=== PATIENT | female | born 1960 | race Hispanic/Latino ===

== ENCOUNTER → 2023-12-21 | Outpatient (CLI) | payer MEDICARE | END | disposition home or self-care (01) | LOC: RAH 10:47 | PROVIDERS: ATTEND Family Medicine | DX: M16.11 Unilateral primary osteoarthritis, right hip (principal); M25.551 Pain in right hip; W01.0XXA Fall on same level from slipping, tripping and stumbling without subsequent striking against object, initial encounter; X58.XXXA Exposure to other specified factors, initial encounter; Y93.89 Activity, other specified; Y92.89 Other specified places as the place of occurrence of the external cause; Y99.8 Other external cause status | CPT/HCPCS: 73502 ==

== ENCOUNTER → 2024-01-03 | Outpatient (CLI) | payer MEDICARE | END | disposition home or self-care (01) | LOC: RAH 15:02 | PROVIDERS: ATTEND Family Medicine | DX: Z12.31 Encounter for screening mammogram for malignant neoplasm of breast (principal); R92.323 Mammographic fibroglandular density, bilateral breasts; Z98.82 Breast implant status | CPT/HCPCS: 77067 ==

== ENCOUNTER → 2024-01-16 | Outpatient (CLI) | payer MEDICARE | END | disposition home or self-care (01) | LOC: RAH 13:50 | PROVIDERS: ATTEND Family Medicine | DX: M85.89 Other specified disorders of bone density and structure, multiple sites (principal); M16.9 Osteoarthritis of hip, unspecified; W01.0XXA Fall on same level from slipping, tripping and stumbling without subsequent striking against object, initial encounter | CPT/HCPCS: 77080 ==

== ENCOUNTER → 2024-09-06 | Outpatient (CLI) | payer OTHER, MEDICARE | END | disposition home or self-care (01) | LOC: RAH 15:40 | PROVIDERS: ATTEND Family Medicine | DX: S33.140A Subluxation of L4/L5 lumbar vertebra, initial encounter (principal); M47.817 Spondylosis without myelopathy or radiculopathy, lumbosacral region; X58.XXXA Exposure to other specified factors, initial encounter; Y93.89 Activity, other specified; Y92.89 Other specified places as the place of occurrence of the external cause; Y99.8 Other external cause status | CPT/HCPCS: 72100 ==

== ENCOUNTER → 2024-11-26 | Outpatient (CLI) | payer OTHER, MEDICARE ==
--- NOTE | 2024-11-26 09:48 | HMCIMG ---
US ABDOMINAL COMPLETE HISTORY: Abdominal pain COMPARISON: None TECHNIQUE: Multiple transverse and longitudinal ultrasound images of the abdomen were obtained. FINDINGS: Abdominal aorta and inferior vena cava are unremarkable. The visualized portion of the pancreas is within normal limits. Liver measures 14 cm. The study is limited due to overlying bowel gas. No gallstone is seen. Common duct measures 3 mm. No evidence of gallbladder wall thickening is seen. Both kidneys are seen. Right kidney measures 10 x 4.4 x 4.3 cm. Left kidney measures 7.3 x 5.4 x 4.8 cm. No hydronephrosis is seen of the both kidneys. The spleen is grossly unremarkable. IMPRESSION: 1. No gallstone or ductal dilatation is seen. Limited study due to overlying bowel gas. 2. No hydronephrosis is seen.
== END | disposition home or self-care (01) ==
LOC: RAH 08:56
PROVIDERS: ATTEND Family Medicine
DX: R10.84 Generalized abdominal pain (principal)
CPT/HCPCS: 76700

== ENCOUNTER → 2025-01-21 | Outpatient (CLI) | payer OTHER, MEDICARE ==
--- NOTE | 2025-01-21 14:09 | HMCIMG ---
MR PELVIS WO CON HISTORY: Pain COMPARISON: None TECHNIQUE: MRI of the pelvis was performed utilizing multiple pulse sequences in axial, coronal and sagittal planes. Patient was not given contrast through intravenous route. FINDINGS: No abnormal signal intensity is seen of the visualized bony structures. There are bilateral hip joints space narrowing. No MR evidence of avascular necrosis, stress fracture or dislocation is seen. No appreciable amount of joint effusion is seen. IMPRESSION: 1. Findings as described above. DJD.
--- NOTE | 2025-01-21 14:13 | HMCIMG ---
MR SPINAL CANAL, LUMBAR WO CON HISTORY: Pain COMPARISON: None TECHNIQUE: MRI of the lumbar spine was performed utilizing multiple pulse sequences in axial , coronal and sagittal plane. Patient was not given contrast through intravenous route. FINDINGS: No abnormal signal intensity is seen of the visualized bony structure. No loss of vertebral height is seen. There is straightening of normal lumbar curvature which may be related to muscle spasm or positioning. Degenerative disc signals are present at all lumbar spine levels. Visualized distal conus is unremarkable. Grade 1 anterolisthesis is seen at the L4-5 level. At the L4-5 level, there is annular disc bulge with bilateral ligamentum flavum hypertrophy and bilateral facet hypertrophy causing anterior thecal sac compression with bilateral lateral recess stenosis and mild bilateral neural foraminal stenosis. The thecal sac measures approximately 6.8 mm in its anterior posterior dimension. At the L5-S1 level, there is spondylotic disc causing anterior thecal sac compression with bilateral lateral recess stenosis and mild bilateral neural foraminal stenosis. The thecal sac measures approximately 8.2 mm in its anterior posterior dimension. IMPRESSION: 1. DJD with lumbar spine spondylosis worse at L4-5 and L5-S1 levels.
== END | disposition home or self-care (01) ==
LOC: RAH 12:40
PROVIDERS: ATTEND Family Medicine
DX: S33.140D Subluxation of L4/L5 lumbar vertebra, subsequent encounter (principal); X58.XXXD Exposure to other specified factors, subsequent encounter
CPT/HCPCS: 72148; 72195

== ENCOUNTER → 2025-11-08 | Outpatient (CLI) | payer OTHER, MEDICAID ==
--- NOTE | 2025-11-09 00:02 | HMCIMG ---
EXAM: CR PELVIS WITH BILATERAL HIP JOINT, 2 VIEWS CLINICAL HISTORY: Sacroiliitis COMPARISON: None provided TECHNIQUE: AP and lateral radiograph of the pelvis was obtained. FINDINGS: Pelvic bones: No displaced fracture, destructive or sclerotic lesions. Note that overlapping bowel shadows may however obscure fine detail. Sacroiliac joints are unremarkable. Hips: Joint spaces are otherwise preserved. No acute fracture or dislocation is identified. Mild degenerative changes may be present depending on age or prior imaging. Soft tissues: Unremarkable. IMPRESSION: 1. No acute fracture or dislocation. 2. Mild degenerative changes. 3. Joint spaces are otherwise preserved. /Ophelia
== END | disposition home or self-care (01) ==
LOC: RAH 13:05
PROVIDERS: ATTEND Anesthesiology
DX: M16.0 Bilateral primary osteoarthritis of hip (principal); M46.1 Sacroiliitis, not elsewhere classified
CPT/HCPCS: 73521